=== PATIENT | female | born 1950 | race Caucasian/White ===

== ENCOUNTER 2018-10-19 22:01 | Emergency (ER) | payer MEDICARE, OTHER ==
[~2018-10-19] VITALS: Ht 162.6 cm; Wt 104.3 kg
--- OUTSIDE RECORDS SUMMARY | 2018-10-19 22:05 | XMS REPORT | Clinical Summary ---
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 Pregabalin Other (See 09/25/2017 Comments) Medications End Date Status Medication Sig Dispensed Refills Start Date Active HYDROcodone-acetaminophen Take 1 tablet 0 (NORCO 10-325) 10-325 mg by mouth per tablet every 8 (eight) hours as needed for Pain. Active furosemide (LASIX) 80 MG Take 80 mg by 0 tablet mouth daily. Active aspirin 81 MG EC tablet Take 81 mg by 0 mouth daily. Active amLODIPine (NORVASC) 10 Take 10 mg by 0 MG tablet mouth daily. Active losartan (COZAAR) 100 MG Take 100 mg 0 tablet by mouth daily. 12/13/2017 Discontinued omeprazole (PRILOSEC) 20 Take 20 mg by 0 MG capsule mouth daily. 10/29/2017 atorvastatin (LIPITOR) 10 Take 1 tablet 30 tablet 0 09/29/201 MG tablet (10 mg total) 7 by mouth nightly for 30 days. 12/13/2017 Discontinued carvedilol (COREG) 6.25 Take 1 tablet 60 tablet 0 09/29/201 MG tablet (6.25 mg 7 total) by mouth 2 (two) times daily. 09/29/2018 folic acid (FOLVITE) 1 MG Take 1 tablet 30 tablet 11 201 tablet (1 mg total) 7 by mouth daily. 12/13/2017 Discontinued sevelamer (RENVELA) 800 Take 1 tablet 90 tablet 0 09/29/201 mg tablet (800 mg 7 total) by mouth 3 (three) times daily with meals. Active Problems Problem Noted Date Uremia 09/25/2017 LEILANI (acute kidney injury) 09/25/2017 CKD (chronic kidney disease) 09/25/2017 Encounters Care Team Description Date Type Specialty Sheng Pugh MD Chronic kidney disease, stage III (moderate) (Primary Dx) 01/25/2018 Orders Only Lab Sheng Pugh MD Chronic renal disease, stage III 01/25/2018 Hospital Radiology Encounter Sheng Pugh MD Chronic renal disease, stage III (Primary Dx) 01/23/2018 Outside Orders Central Scheduling Cinthya Rowe MD LEILANI (acute kidney injury) (HCC) 12/13/2017 Hospital Encounter Cinthya Rowe MD ESRD (end stage renal disease) on dialysis (HCC) (Primary Dx) 12/13/2017 Office Visit Cardiology 12/13/2017 Orders Only General Internal Medicine Sheng Pugh MD ESRD (end stage renal disease) (HCC) (Primary Dx) 11/15/2017 Outside Orders Radiology after 10/18/2017 Social History Date Tobacco Use Types Packs/Day Years Used Former Smoker Smokeless Tobacco: Never Used Tobacco Cessation: Counseling Given: No Comments: stopped 15 years ago Sex Assigned at Date Recorded Not on file Industry Job Start Date Occupation Not on file Not on file Not on file Travel End Travel History Travel Start No recent travel history available. Last Filed Vital Signs Time Taken Vital Sign Reading 01/25/2018 12:10 PM CDT Blood Pressure 175/63 01/25/2018 12:10 PM CDT Pulse 88 01/25/2018 11:17 AM CDT Temperature 36.9 C (98.4 F) 01/25/2018 12:10 PM CDT Respiratory Rate 16 01/25/2018 12:10 PM CDT Oxygen Saturation 99% - Inhaled Oxygen - Concentration 01/25/2018 11:17 AM CDT Weight 108.9 kg (240 lb) 12/13/2017 10:16 AM CDT Height 162.6 cm (5' 4") 01/25/2018 11:17 AM CDT Body Mass Index 41.2 Plan of Treatment Health Maintenance Due Date Last Done Comments INFLUENZA VACCINE 07/01/2018 Procedures Comments Procedure Name Priority Date/Time Associated Diagnosis IR TUNNELED CATHETER Routine 01/25/2018 Chronic renal disease, REMOVAL 12:18 PM CDT stage III PLATELET COUNT STAT 01/25/2018 Chronic kidney disease, 9:28 AM CDT stage III (moderate) PT/APTT STAT 01/25/2018 Chronic kidney disease, 9:28 AM CDT stage III (moderate) ECG 12-LEAD Routine 12/13/2017 11:06 AM CDT PERIPHERAL VASCULAR 11/22/2017 REPORT - SCAN 2:25 PM [employer]STRUCTION OR [employer] VEIN MAPPING ARM/ARMS Routine 11/22/2017 ESRD (end stage renal 11:17 AM [employer] OR [employer] disease) (HCC) after 10/18/2017 Results * IR Tunneled Catheter Removal (01/25/2018 12:18 PM CDT) Narrative Performed At FINAL REPORT [facility] Right chest Tunneled hemodialysis catheter removal History: Resolution of renal failure Modality: None. Sedation: None [employer] Internet Sales Consultant:Fer Hameed MD. Coal Handling Supervisor:None. Approach:Right anterior chest. Estimated blood loss:< 5 cc. Specimen: None. Technique:The procedure including risks and benefits were explained to the patient, who expressed understanding. After informed written consent was obtained, the patient's right anterior chest region was prepped and draped in the usual sterile fashion. The skin was anesthetized with lidocaine. The tunneled central line was then removed in toto with blunt dissection and gentle traction. The skin entry site was then dressed with sterile gauze and Tegaderm. The patient tolerated the procedure well. Impression: Successful, uncomplicated removal of a right chest tunneled hemodialysis catheter. Signed: Fer Hameed MD Report Verified Date/Time:01/25/2018 17:56:17 Reading Location: [facility] P048 Angio Body Reading Room Procedure Note Interface, External Ris In - 01/25/2018 5:58 PM CDT FINAL REPORT Right chest Tunneled hemodialysis catheter removal History: Resolution of renal failure Modality: None. Sedation: None [employer] Internet Sales Consultant: Fer Hameed MD. Coal Handling Supervisor: None. Approach: Right anterior chest. Estimated blood loss: < 5 cc. Specimen: None. Technique: The procedure including risks and benefits were explained to the patient, who expressed understanding. After informed written consent was obtained, the patient's right anterior chest region was prepped and draped in the usual sterile fashion. The skin was anesthetized with lidocaine. The tunneled central line was then removed in toto with blunt dissection and gentle traction. The skin entry site was then dressed with sterile gauze and Tegaderm. The patient tolerated the procedure well. Impression: Successful, uncomplicated removal of a right chest tunneled hemodialysis catheter. Signed: Fer Hameed MD Report Verified Date/Time: 01/25/2018 17:56:17 Reading Location: [facility] P048 Angio Body Reading Room Performing Organization Address City/[facility]/Zipcode Phone Number RIS * PT/aPTT (01/25/2018 9:28 AM CDT) Protime 13.8 11.7 - 14.7 seconds [facility] INR 1.1 <=5.9 [facility] PTT 28.6 22.5 - 36.0 seconds [facility] Specimen Blood Narrative Performed At RECOMMENDED COUMADIN/WARFARIN INR THERAPY RANGES [facility] STANDARD DOSE: 2.0 - 3.0 Includes: PROPHYLAXIS for venous thrombosis, [facility] systemic embolization; TREATMENT for venous thrombosis and/or pulmonary embolus. HIGH RISK: Target INR is 2.5-3.5 for patients with mechanical heart valves. Performing Organization Address [facility] Phone Number [place] [phone] [place] [address] [facility] * Platelet count (01/25/2018 9:28 AM CDT) Platelets 272 150 - 450 K/CU MM [facility] Specimen Blood Performing Organization Address [facility] Phone Number [facility] [address] [place] [address] [facility] * ECG 12 lead (12/13/2017 11:06 AM CDT) Narrative Performed At Ventricular Rate 95 BPM GE MUSE Atrial Rate 95 BPM P-R Interval 158 ms QRS Duration 88 ms Q-T Interval 376 ms QTC Calculation(Bazett) 472 ms P [place] 34 degrees R [place] -50 degrees T [place] 36 degrees Normal sinus rhythm Left anterior fascicular block Poor R wave progression Prolonged QT Abnormal ECG When compared with ECG of 26-SEP-2017 23:32, Poor R wave progression Nonspecific T wave abnormality, worse in QT has lengthened Confirmed by MD WOODS YOCHAI ([id number]) on 12/14/2017 2:25:23 PM Procedure Note Interface, External Ris In - 12/14/2017 2:25 PM CDT Ventricular Rate 95 BPM Atrial Rate 95 BPM P-R Interval 158 ms QRS Duration 88 ms Q-T Interval 376 ms QTC Calculation(Bazett) 472 ms P [place] 34 degrees R [place] -50 degrees T [place] 36 degrees Normal sinus rhythm Left anterior fascicular block Poor R wave progression Prolonged QT Abnormal ECG When compared with ECG of 26-SEP-2017 23:32, Poor R wave progression Nonspecific T wave abnormality, worse in QT has lengthened Confirmed by MD WOODS YOCHAI ([id number]) on 12/14/2017 2:25:23 PM Performing Organization Address City/State/Zipcode Phone Number [employer] * PERIPHERAL VASCULAR REPORT - SCAN (11/22/2017 2:25 PM CONSTRUCTION OR [employer]ER) Narrative Performed At * Vein mapping arm/arms (11/22/2017 11:17 AM CONSTRUCTION OR [employer]ANG [employer]ER) Ejection Fraction [facility] MKCK[facility]ON CPACS Impressions Performed At Right Impression [facility] 1. There is no deep venous obstruction in the jugular, axillary, brachial, [facility] radial or ulnar veins. 2. The subclavian vein and artery are not visualized due to dialysis catheter. 3. There is no superficial venous obstruction in the cephalic or basilic veins. 4. The axillary, brachial, radial and ulnar arteries are patent with normal triphasic Doppler waveforms throughout. Left Impression 1. There is no deep venous obstruction in the jugular, subclavian, axillary, brachial, radial or ulnar veins. 2. There is no superficial venous obstruction in the cephalic or basilic veins. 3. The subclavian, axillary, brachial, radial and ulnar arteries are patent with normal triphasic Doppler waveforms throughout. Conclusions Summary Arterial duplex imaging, venous duplex imaging and compression of both upper extremities was performed. The arteries and veins were adequately visualized except as noted. The arteries were patent with normal triphasic Doppler waveforms bilaterally. The venous systems were patent and compressible with no evidence of thrombus in the visualized veins. Superficial venous measurements are documented below. Signature Velocities are measured in cm/s ; Diameters are measured in cm Cephalic Mapping Right Left + + + + + + + + !Location ! !AP Diam!Trans Diam! !AP Diam!Trans Diam! + + + + + + + + !Cephalic at Prox UA ! ! !0.53! ! !0.19! + + + + + + + + !Cephalic at Mid UA ! ! !0.33! ! !0.17! + + + + + + + + !Cephalic at Dist UA ! ! !0.21! ! !0.11! + + + + + + + + !Cephalic at Prox LA ! ! !0.18! ! !0.13! + + + + + + + + !Cephalic at Mid LA ! ! !0.25! ! !0.13! + + + + + + + + !Cephalic at Dist LA ! ! !0.22! ! !0.11! + + + + + + + + Basilic Mapping Right Left + + + + + + + + !Location ! !AP Diam!Trans Diam! !AP Diam!Trans Diam! + + + + + + + + !Basilic at Prox UA ! ! !0.48! ! !0.57! + + + + + + + + !Basilic at Mid UA ! ! !0.49! ! !0.47! + + + + + + + + !Basilic at Dist UA ! ! !0.45! ! !0.38! + + + + + + + + !Basilic at Prox LA ! ! !0.32! ! !0.17! + + + + + + + + !Basilic at Mid LA ! ! !0.21! ! !0.1 ! + + + + + + + + !Basilic at Dist LA ! ! !0.19! ! !0.12! + + + + + + + + Narrative Performed At [facility] - Upper Extremities Vein Mapping [facility] Demographics MKCKESSDACIA CPA Patient NamePERI MUNSONDate of Study 11/22/2017 YINA Age 67 Visit [id number] GenderFemale Date of 1950 [facility] Physician Registered Midwife Nataly Teran InterpretingJ. Roland Angel RN, Karen العراقي, RPVI Procedure Type of Study: Veins: Upper Extremity Vein Mapping, VEIN MAPPING ARM/ARMS. Indications for Study:ESRD. Patient Status:Routine. Study Location:Vascular Lab. Technical Quality:Adequate visualization. Risk Factors History of Disease + +----+ + !Diagnosis !Date!Comments ! + +----+ + !History/Risk Factors: !!ESRD, HTN, HLD, DM, morbid obesity! + +----+ + Procedure Note Interface, External Ris In - 11/22/2017 1:50 PM CONSTRUCTION OR LEAK GANG LAB[employer]ER [facility] - Upper Extremities Vein Mapping Demographics Patient Name PERI MUNSON Date of Study 11/22/2017 YINA DUNBARN [id number] Age 67 Visit Number [id number] Gender Female Date of 1950 Number Referring Keaton Bingham Room Number Physician Registered Midwife Nataly Teran Interpreting Daniela Angel RN, RVT Physician , RPVI Procedure Type of Study: Veins: Upper Extremity Vein Mapping, VEIN MAPPING ARM/ARMS. Indications for Study:ESRD. Patient Status:Routine. Study Location:Vascular Lab. Technical Quality:Adequate visualization. Risk Factors History of Disease + +----+ + !Diagnosis !Date!Comments ! + +----+ + !History/Risk Factors: ! !ESRD, HTN, HLD, DM, morbid obesity ! + +----+ + Impressions Right Impression 1. There is no deep venous obstruction in the jugular, axillary, brachial, radial or ulnar veins. 2. The subclavian vein and artery are not visualized due to dialysis catheter. 3. There is no superficial venous obstruction in the cephalic or basilic veins. 4. The axillary, brachial, radial and ulnar arteries are patent with normal triphasic Doppler waveforms throughout. Left Impression 1. There is no deep venous obstruction in the jugular, subclavian, axillary, brachial, radial or ulnar veins. 2. There is no superficial venous obstruction in the cephalic or basilic veins. 3. The subclavian, axillary, brachial, radial and ulnar arteries are patent with normal triphasic Doppler waveforms throughout. Conclusions Summary Arterial duplex imaging, venous duplex imaging and compression of both upper extremities was performed. The arteries and veins were adequately visualized except as noted. The arteries were patent with normal triphasic Doppler waveforms bilaterally. The venous systems were patent and compressible with no evidence of thrombus in the visualized veins. Superficial venous measurements are documented below. Signature Velocities are measured in cm/s ; Diameters are measured in cm Cephalic Mapping Right Left + + + + + + + + !Location ! !AP Diam !Trans Diam ! !AP Diam !Trans Diam ! + + + + + + + + !Cephalic at Prox UA ! ! !0.53 ! ! !0.19 ! + + + + + + + + !Cephalic at Mid UA ! ! !0.33 ! ! !0.17 ! + + + + + + + + !Cephalic at Dist UA ! ! !0.21 ! ! !0.11 ! + + + + + + + + !Cephalic at Prox LA ! ! !0.18 ! ! !0.13 ! + + + + + + + + !Cephalic at Mid LA ! ! !0.25 ! ! !0.13 ! + + + + + + + + !Cephalic at Dist LA ! ! !0.22 ! ! !0.11 ! + + + + + + + + Basilic Mapping Right Left + + + + + + + + !Location ! !AP Diam !Trans Diam ! !AP Diam !Trans Diam ! + + + + + + + + !Basilic at Prox UA ! ! !0.48 ! ! !0.57 ! + + + + + + + + !Basilic at Mid UA ! ! !0.49 ! ! !0.47 ! + + + + + + + + !Basilic at Dist UA ! ! !0.45 ! ! !0.38 ! + + + + + + + + !Basilic at Prox LA ! ! !0.32 ! ! !0.17 ! + + + + + + + + !Basilic at Mid LA ! ! !0.21 ! ! !0.1 ! + + + + + + + + !Basilic at Dist LA ! ! !0.19 ! ! !0.12 ! + + + + + + + + Performing Organization Address City/State/[facility] Phone Number [facility] after 10/18/2017 Insurance Payer Benefit Subscriber ID Type Phone Address Plan / Group [employer] xxxxxxxxxxx MEDICARE ADV Advance Directives For more information, please contact: [address] [address] Date Inactivated Comments Code Status Date Activated 09/29/2017 7:24 PM Full Code 09/25/2017 5:29 PM This code status was determined by: Patient
--- OUTSIDE RECORDS SUMMARY | 2018-10-19 22:06 | XMS REPORT ---
Author Author [facility] Address Unknown Phone Unavailable Care Team Providers Care Reaming Machine Tender Name Role Phone PAYTON MARTINEZ Unavailable Unavailable MONICA PETERSON Unavailable Unavailable Problems This patient has no known problems. Allergies, Adverse Reactions, Alerts This patient has no known allergies or adverse reactions. Medications This patient has no known medications. Results Test Description Test Time Test Comments Text Results Atomic Results Result Comments ANG, REMOVAL OF TUNNELED CVC W/O PORT 2018-01-25 17:56:00 Reason for Exam:->chronic renal disease III FINAL REPORT Right chest Tunneled hemodialysis catheter removal History: Resolution of renal failure Modality: None. Sedation: None Operations Associate: Fer Hameed MD. Ecosystem Ecology Professor: None. Approach: Right anterior chest. Estimated blood [...] chest tunneled hemodialysis catheter. Signed: Fer Hameed MDReport Verified Date/Time: 01/25/2018 17:56:17 Reading Location: [place] [address] Angio Body Reading Room /APTT 2018-01-25 10:17:00 PROTIME (BEAKER) (test eyan=555) 13.8 seconds 11.7-14.7 INR (BEAKER) (test eusz=625) 1.1 <=5.9 PARTIAL THROMBOPLASTIN TIME (BEAKER) (test vhlo=947) 28.6 seconds 22.5-36.0 RECOMMENDED COUMADIN/WARFARIN INR THERAPY RANGESSTANDARD DOSE: 2.0 - 3.0 Inclu nadine: PROPHYLAXIS for venous thrombosis, systemic embolization; TREATMENT for katherine ous thrombosis and/or pulmonary embolus.HIGH RISK: Target INR is 2.5-3.5 for pat ients with mechanical heart valves.PLATELET [id number] 09:57:00* Test Item Value Reference Range Comments PLATELET COUNT (TOMI) (test zpjw=532) 272 K/CU MM 150-450 ANG, NON-TUNNELED DIALYSIS CATH, [id number] 08:15:00Reason for exam:-> severe kidney failure requiring HD initiation todayFINAL REPORT Nontunneled dialysis catheter insertion. History: Kidney failure. Modality: Fluoroscopy and sonography. Sedation: None. Operations Associate: Michele Moss MD. Ecosystem Ecology Professor: MD Apollo (Fellow). Approach: Right internal jugular vein Estimated blood loss: < 5 cc. Specimen: None. Fluoroscopy Time: 0.4 min.Reference Air Kerma (Ka, r): 12.4 mGy. Technique: Informed written consent was obtained. Discussion of risks, benefits, and alternatives were made with the patient. The patient expressed understanding and agreed to proceed. A universal timeout was performed prior to starting the procedure. All elements maximal sterile barrier technique was utilized for this procedure, including utilization of sterile scrub solution for skin prep, a large sterile sheet to cover the areas of the patient that were not prepped, and hand hygiene, mask, head covering, and sterile gown for performing radiologist and scrub technologist. The skin was anesthetized with 2% lidocaine. Ultrasound evaluation showed a patent and compressible right internal jugular vein, which was punctured under direct real-time ultrasound guidance with a micropuncture needle. An ultrasound image was saved to PACS. A microwire and sheath were placed. A 0.035 inch wire was placed through the sheath into the right atrium. The tract was dilated. The 15 cm dual lumen nontunneled dialysis catheter was p laced over the wire with its distal tip terminating in the superior right atrium . The ports were flushed and aspirated easily following placement. Ports were l ocked with heparin (1000 units per cc) The catheter was sutured to the skin to secure its placement. Vital signs were monitored throughout the procedure by a nurse, and remained stable. The patient tolerated the procedure well and left t he department in the same condition. Results: Spot radiograph of the chest demonstrates the new triple-lumen catheter to lie in the expected position with its tip overlying the right atrium. Impression: Successful, uncomplicated placement of a right nontunneled dialysis catheter using sonographic and fluoroscopic guidance. The catheter is ready for immediate use. Signed: Michele Mosseport Verified Date/Time: 11/2017 08:15:35 Reading Location: [facility] P048 Angio Body Reading Room Elect ronically signed by: MICHELE MOSS MD on 10/02/2017 08:15 AM BASIC METABOLIC [id number] 11:20:00* Test Item Value Reference Range Comments SODIUM (BEAKER) (test dseb=013) 139 meq/L 136-145 POTASSIUM (BEAKER) (test ucdh=757) 3.9 meq/L 3.5-5.1 CHLORIDE (BEAKER) (test fllk=805) 101 meq/L 98-107 CO2 (BEAKER) (test winy=596) 27 meq/L 22-29 BLOOD UREA NITROGEN (BEAKER) (test loxy=344) 48 mg/dL 7-21 CREATININE (BEAKER) (test ruvu=685) 3.57 mg/dL 0.57-1.25 GLUCOSE RANDOM (BEAKER) (test chse=253) 100 mg/dL 70-105 CALCIUM (BEAKER) (test dfky=353) 8.2 mg/dL 8.4-10.2 EGFR (BEAKER) (test qdph=7122) 13 mL/min/1.73 sq m ESTIMATED GFR IS NOT ACCURATE CREATININE CLEARANCE IN PREDICTING GLOMERULAR FILTRATION RATE. ESTIMATED GFR IS NOT APPLICABLE FOR DIALYSIS PATIENTS. CBC (HEMOGRAM ONLY)2017-09-29 09:33:00* Test Item Value Reference Range Comments WHITE BLOOD CELL COUNT (BEAKER) (test llsl=030) 8.7 K/ L 3.5-10.5 RED BLOOD CELL COUNT (BEAKER) (test beqw=712) 2.86 M/ L 3.93-5.22 HEMOGLOBIN (BEAKER) (test uvog=810) 8.5 GM/DL 11.2-15.7 HEMATOCRIT (BEAKER) (test ikml=553) 27.4 % 34.1-44.9 MEAN CORPUSCULAR VOLUME (BEAKER) (test ugys=090) 95.8 fL 79.4-94.8 MEAN CORPUSCULAR HEMOGLOBIN (BEAKER) (test ratx=119) 29.7 pg 25.6-32.2 MEAN CORPUSCULAR HEMOGLOBIN CONC (BEAKER) (test lkxv=294) 31.0 GM/DL 32.2-35.5 RED CELL DISTRIBUTION WIDTH (BEAKER) (test lnpg=645) 13.1 % 11.7-14.4 PLATELET COUNT (BEAKER) (test qhdt=611) 132 K/CU MM 150-450 MEAN PLATELET VOLUME (BEAKER) (test lveh=901) 10.5 fL 9.4-12.3 NUCLEATED RED BLOOD CELLS (BEAKER) (test xfae=366) 0 /100 WBC 0-0 POCT-GLUCOSE [id number] 07:33:00* Test Item Value Reference Range Comments POC-GLUCOSE METER (BEAKER) (test sdom=8615) 127 mg/dL 70-110 [address]ED AT [address] [address] POCT-GLUCOSE [id number] 21:15:00* Test Item Value Reference Range Comments POC-GLUCOSE METER (BEAKER) (test tady=8908) 156 mg/dL 70-110 TESTED AT [address] [address] POCT-GLUCOSE [id number] 17:44:00* Test Item Value Reference Range Comments POC-GLUCOSE METER (BEAKER) (test yssd=3072) 135 mg/dL 70-110 TESTED AT [address] [address] ANG, TUNNELED CATHETER [id number] 17:33:00Reason for exam:->ESRDFINAL REPORT Procedure: Conversion of a Kristian catheter to tunneled dialysis catheter, 09/28/2017 History need long-term dialysis Anesth esia: 2% lidocaine Modality: Fluoroscopy, fluoroscopy time: 0.5 minutes, total d ose: Five mGy, reference air kerma method Approach: Right chest and neck TECHNIQ UE: This procedure was performed after obtaining written informed consent withou t untoward effect. The existing right internal jugular vein Kristian catheter was prepped and removed over guidewire. A 15.5 Filipino double lumen hemodialysis cat heter was introduced along the upper portion of the right chest and into the acc ess site where the previously placed Kristian catheter had been located. There wa s no significant blood loss. CONCLUSION: Conversion of a Kristian to tunneled sunny lysis catheter. Signed: Flory Cooper MDReport Verified Date/Time: 09/28/2017 1 7:33:47 Reading Location: [facility] B1 P048 Angio Body Reading Room Electronicall y signed by: FLORY COOPER M.D. on 09/28/2017 05:33 PM PROTEIN ELECTROPHORESIS, [id number] 16:22:00* Test Item Value Reference Range Comments ALBUMIN FRACTION (BEAKER) (test rshs=234) 3.1 g/dL 3.5-5.5 ALPHA 1 FRACTION (BEAKER) (test upnt=813) 0.2 g/dL 0.2-0.4 ALPHA 2 FRACTION (BEAKER) (test zgyv=962) 0.8 g/dL 0.5-0.9 BETA FRACTION (BEAKER) (test gldn=110) 0.8 g/dL 0.6-1.1 GAMMA GLOBULIN FRACTION (BEAKER) (test fmvl=682) 0.8 g/dL 0.7-1.7 INTERPRETATION-119 (BEAKER) (test obcn=3552) All fractions present in expected distribution. No monoclonal bands detected. GNRS-IMSTRHFJQYN-227 (BEAKER) (test jeao=2128) Sarah Coker MD (electronic signature) PROTEIN TOTAL SERUM, SPEP (BEAKER) (test pmgu=3755) 5.7 gm/dL 6.0-8.3 HEPARIN [id number] 14:18:00* Test Item Value Reference Range Comments HEPARIN ANTIBODY (BEAKER) (test qkwg=720) Negative Negative HEPARIN ANTIBODY OD (BEAKER) (test tpet=5341) 0.068 <0.400 4T TOTAL SCORE (BEAKER) (test ynja=5118) 3 Probability of HIT based on scoring system: 6-8=High probability; 4-5=intermedi ate probability; 0-3=low probabilityPOCT-GLUCOSE [id number] 08:12:00* Test Item Value Reference Range Comments POC-GLUCOSE METER (BEAKER) (test dvat=5429) 139 mg/dL 70-110 TESTED AT [facility] [address] [facility] [address] [id number] 05:53:00* Test Item Value Reference Range Comments PHOSPHORUS (BEAKER) (test rwtx=754) 4.1 mg/dL 2.3-4.7 [id number] 05:53:00* Test Item Value Reference Range Comments MAGNESIUM (BEAKER) (test fyur=985) 1.9 mg/dL 1.6-2.6 BASIC METABOLIC [id number] 05:53:00* Test Item Value Reference Range Comments SODIUM (BEAKER) (test drik=779) 140 meq/L 136-145 POTASSIUM (BEAKER) (test unar=281) 3.9 meq/L 3.5-5.1 CHLORIDE (BEAKER) (test wiqq=112) 105 meq/L 98-107 CO2 (BEAKER) (test assi=942) 25 meq/L 22-29 BLOOD UREA NITROGEN (BEAKER) (test aweb=316) 52 mg/dL 7-21 CREATININE (BEAKER) (test vsnq=185) 3.33 mg/dL 0.57-1.25 GLUCOSE RANDOM (BEAKER) (test stuq=919) 114 mg/dL 70-105 CALCIUM (BEAKER) (test lgfm=029) 8.2 mg/dL 8.4-10.2 EGFR (BEAKER) (test bqpx=8683) 14 mL/min/1.73 sq m ESTIMATED GFR IS NOT ACCURATE CREATININE CLEARANCE IN PREDICTING GLOMERULAR FILTRATION RATE. ESTIMATED GFR IS NOT APPLICABLE FOR DIALYSIS PATIENTS. CALCIUM, [id number] 05:47:00* Test Item Value Reference Range Comments CALCIUM IONIZED (BEAKER) (test tldl=029) 0.86 mmol/L 1.12-1.27 PH, BLOOD (BEAKER) (test dxvw=6214) 7.53 CBC W/PLT COUNT & AUTO [id number] 05:20:00* Test Item Value Reference Range Comments WHITE BLOOD CELL COUNT (BEAKER) (test hscl=976) 7.7 K/ L 3.5-10.5 RED BLOOD CELL COUNT (BEAKER) (test vvwy=546) 2.71 M/ L 3.93-5.22 HEMOGLOBIN (BEAKER) (test agxm=352) 8.1 GM/DL 11.2-15.7 HEMATOCRIT (BEAKER) (test vgyx=833) 26.2 % 34.1-44.9 MEAN CORPUSCULAR VOLUME (BEAKER) (test kdxv=912) 96.7 fL 79.4-94.8 MEAN CORPUSCULAR HEMOGLOBIN (BEAKER) (test pgbc=910) 29.9 pg 25.6-32.2 MEAN CORPUSCULAR HEMOGLOBIN CONC (BEAKER) (test ujec=134) 30.9 GM/DL 32.2-35.5 RED CELL DISTRIBUTION WIDTH (BEAKER) (test tlwy=591) 13.3 % 11.7-14.4 PLATELET COUNT (BEAKER) (test nnbm=343) 128 K/CU MM 150-450 MEAN PLATELET VOLUME (BEAKER) (test eyvl=284) 10.6 fL 9.4-12.3 NUCLEATED RED BLOOD CELLS (BEAKER) (test tkbb=014) 0 /100 WBC 0-0 NEUTROPHILS RELATIVE PERCENT (BEAKER) (test uefw=490) 72 % LYMPHOCYTES RELATIVE PERCENT (BEAKER) (test icqj=346) 11 % MONOCYTES RELATIVE PERCENT (BEAKER) (test fpar=266) 9 % EOSINOPHILS RELATIVE PERCENT (BEAKER) (test kawx=057) 6 % BASOPHILS RELATIVE PERCENT (BEAKER) (test zrfz=351) 1 % NEUTROPHILS ABSOLUTE COUNT (BEAKER) (test juoy=313) 5.50 K/ L 1.56-6.13 LYMPHOCYTES ABSOLUTE COUNT (BEAKER) (test mnqp=505) 0.86 K/ L 1.18-3.74 MONOCYTES ABSOLUTE COUNT (BEAKER) (test ryib=290) 0.72 K/ L 0.24-0.36 EOSINOPHILS ABSOLUTE COUNT (BEAKER) (test hvff=051) 0.48 K/ L 0.04-0.36 BASOPHILS ABSOLUTE COUNT (BEAKER) (test ioad=259) 0.05 K/ L 0.01-0.08 IMMATURE GRANULOCYTES-RELATIVE PERCENT (BEAKER) (test hwqn=8224) 1 % 0-1 POCT-GLUCOSE [id number] 21:28:00* Test Item Value Reference Range Comments POC-GLUCOSE METER (BEAKER) (test smuy=7743) 162 mg/dL 70-110 [address]ED AT [address] [address] POCT-GLUCOSE [id number] 18:45:00* Test Item Value Reference Range Comments POC-GLUCOSE METER (BEAKER) (test ghxb=8424) 149 mg/dL 70-110 TESTED AT [address] [address] POCT-GLUCOSE [id number] 17:26:00* Test Item Value Reference Range Comments POC-GLUCOSE METER (BEAKER) (test tfml=5249) 131 mg/dL 70-110 TESTED AT [address] [address] POCT-GLUCOSE [id number] 13:43:00* Test Item Value Reference Range Comments POC-GLUCOSE METER (BEAKER) (test yubu=1425) 130 mg/dL 70-110 TESTED AT [address] [address] URINE [id number] 11:03:00* Test Item Value Reference Range Comments CULTURE (BEAKER) (test whwf=4669) See comment 10-19,000 col/mL skin magdalena<10,000 col/mL GRAM NEGATIVE RODCBC W/PLT COUNT & AUTO [id number] 09:14:00* Test Item Value Reference Range Comments WHITE BLOOD CELL COUNT (BEAKER) (test fsuq=398) 7.5 K/ L 3.5-10.5 RED BLOOD CELL COUNT (BEAKER) (test kubv=878) 2.93 M/ L 3.93-5.22 HEMOGLOBIN (BEAKER) (test dnbz=301) 8.7 GM/DL 11.2-15.7 HEMATOCRIT (BEAKER) (test igac=811) 27.4 % 34.1-44.9 MEAN CORPUSCULAR VOLUME (BEAKER) (test sfcz=726) 93.5 fL 79.4-94.8 MEAN CORPUSCULAR HEMOGLOBIN (BEAKER) (test nxyi=158) 29.7 pg 25.6-32.2 MEAN CORPUSCULAR HEMOGLOBIN CONC (BEAKER) (test apjm=243) 31.8 GM/DL 32.2-35.5 RED CELL DISTRIBUTION WIDTH (BEAKER) (test wnjs=956) 13.6 % 11.7-14.4 PLATELET COUNT (BEAKER) (test xizi=297) 136 K/CU MM 150-450 MEAN PLATELET VOLUME (BEAKER) (test obmz=314) 11.1 fL 9.4-12.3 NUCLEATED RED BLOOD CELLS (BEAKER) (test codv=896) 0 /100 WBC 0-0 NEUTROPHILS RELATIVE PERCENT (BEAKER) (test bueg=130) 73 % LYMPHOCYTES RELATIVE PERCENT (BEAKER) (test suuj=798) 11 % MONOCYTES RELATIVE PERCENT (BEAKER) (test vgjp=512) 10 % EOSINOPHILS RELATIVE PERCENT (BEAKER) (test zazf=519) 5 % BASOPHILS RELATIVE PERCENT (BEAKER) (test urjq=977) 0 % NEUTROPHILS ABSOLUTE COUNT (BEAKER) (test mjen=997) 5.47 K/ L 1.56-6.13 LYMPHOCYTES ABSOLUTE COUNT (BEAKER) (test mbxj=305) 0.86 K/ L 1.18-3.74 MONOCYTES ABSOLUTE COUNT (BEAKER) (test gasl=123) 0.74 K/ L 0.24-0.36 EOSINOPHILS ABSOLUTE COUNT (BEAKER) (test elfh=186) 0.39 K/ L 0.04-0.36 BASOPHILS ABSOLUTE COUNT (BEAKER) (test dlpy=704) 0.03 K/ L 0.01-0.08 IMMATURE GRANULOCYTES-RELATIVE PERCENT (BEAKER) (test mdaw=2636) 0 % 0-1 CALCIUM, [id number] 07:40:00* Test Item Value Reference Range Comments CALCIUM IONIZED (BEAKER) (test pvnk=449) 0.94 mmol/L 1.12-1.27 PH, BLOOD (BEAKER) (test cenr=3376) 7.45 BASIC METABOLIC [id number] 07:26:00* Test Item Value Reference Range Comments SODIUM (BEAKER) (test wxqd=801) 140 meq/L 136-145 POTASSIUM (BEAKER) (test eagv=064) 4.5 meq/L 3.5-5.1 CHLORIDE (BEAKER) (test ogck=559) 106 meq/L 98-107 CO2 (BEAKER) (test nlbt=903) 22 meq/L 22-29 BLOOD UREA NITROGEN (BEAKER) (test fsap=878) 95 mg/dL 7-21 CREATININE (BEAKER) (test hqul=169) 4.90 mg/dL 0.57-1.25 GLUCOSE RANDOM (BEAKER) (test iesy=905) 115 mg/dL 70-105 CALCIUM (BEAKER) (test vemg=043) 8.2 mg/dL 8.4-10.2 EGFR (BEAKER) (test yygv=7146) 9 mL/min/1.73 sq m ESTIMATED GFR IS NOT ACCURATE CREATININE CLEARANCE IN PREDICTING GLOMERULAR FILTRATION RATE. ESTIMATED GFR IS NOT APPLICABLE FOR DIALYSIS PATIENTS. [id number] 07:25:00* Test Item Value Reference Range Comments PHOSPHORUS (BEAKER) (test zjmp=164) 6.0 mg/dL 2.3-4.7 [id number] 07:25:00* Test Item Value Reference Range Comments MAGNESIUM (BEAKER) (test hops=001) 2.3 mg/dL 1.6-2.6 POCT-GLUCOSE [id number] 22:05:00* Test Item Value Reference Range Comments POC-GLUCOSE METER (BEAKER) (test avqw=4186) 147 mg/dL 70-110 TESTED AT [facility] [address] [facility] [address] POCT-GLUCOSE [id number] 22:01:00* Test Item Value Reference Range Comments POC-GLUCOSE METER (BEAKER) (test bjlv=1361) 117 mg/dL 70-110 TESTED AT [facility] [address] [facility] [address] HEPATITIS B SURFACE [id number] 20:41:00* Test Item Value Reference Range Comments HEPATITIS B SURFACE ANTIGEN (2) (BEAKER) (test dufe=4167) Nonreactive Nonreactive HEPATITIS B [id number] 15:43:00* Test Item Value Reference Range Comments HEPATITIS B CORE TOTAL ANTIBODY (BEAKER) (test cyyp=384) Reactive Nonreactive HEPATITIS B SURFACE ANTIBODY (BEAKER) (test kzhf=508) 93.1 mIU/mL <8.0 HEPATITIS B SURFACE ANTIGEN (2) (BEAKER) (test bwpk=1884) Nonreactive Nonreactive VITAMIN D, [id number] 15:37:00* Test Item Value Reference Range Comments VITAMIN D 25-OH (BEAKER) (test vrqk=8894) 8.9 ng/mL 6.6-49.9 Effective 07/11/2017: Reference Range ChangeNew: 6.6-49.9 ng/mL Previous: 13.0 -47.8 ng/mLRecommended Vitamin D Target Range: 30.0-40.0 ng/mLPOCT-GLUCOSE METER 2017-09-26 12:17:00* Test Item Value Reference Range Comments POC-GLUCOSE METER (BEAKER) (test lqis=3642) 160 mg/dL 70-110 TESTED AT [facility] [address] [facility] [address] POCT-GLUCOSE [id number] 07:57:00* Test Item Value Reference Range Comments POC-GLUCOSE METER (BEAKER) (test jyjx=6858) 146 mg/dL 70-110 TESTED AT [place] [id number] [facility] [address] [id number] 07:18:00* Test Item Value Reference Range Comments PHOSPHORUS (BEAKER) (test hglq=612) 9.1 mg/dL 2.3-4.7 BASIC METABOLIC [id number] 07:08:00* Test Item Value Reference Range Comments SODIUM (BEAKER) (test fxbg=394) 136 meq/L 136-145 POTASSIUM (BEAKER) (test fcsr=160) 4.9 meq/L 3.5-5.1 CHLORIDE (BEAKER) (test apwj=068) 104 meq/L 98-107 CO2 (BEAKER) (test xpwm=015) 18 meq/L 22-29 BLOOD UREA NITROGEN (BEAKER) (test yozc=904) 145 mg/dL 7-21 CREATININE (BEAKER) (test estr=643) 7.11 mg/dL 0.57-1.25 GLUCOSE RANDOM (BEAKER) (test cmzt=136) 130 mg/dL 70-105 CALCIUM (BEAKER) (test pmfd=518) 7.1 mg/dL 8.4-10.2 EGFR (BEAKER) (test qbkj=5566) 6 mL/min/1.73 sq m ESTIMATED GFR IS NOT ACCURATE CREATININE CLEARANCE IN PREDICTING GLOMERULAR FILTRATION RATE. ESTIMATED GFR IS NOT APPLICABLE FOR DIALYSIS PATIENTS. CALCIUM, [id number] 06:59:00* Test Item Value Reference Range Comments CALCIUM IONIZED (BEAKER) (test ispq=883) 0.80 mmol/L 1.12-1.27 PH, BLOOD (BEAKER) (test psrd=2407) 7.36 [id number] 06:56:00* Test Item Value Reference Range Comments MAGNESIUM (BEAKER) (test yrvw=041) 2.3 mg/dL 1.6-2.6 CBC W/PLT COUNT & AUTO [id number] 06:29:00* Test Item Value Reference Range Comments WHITE BLOOD CELL COUNT (BEAKER) (test ksbj=518) 8.7 K/ L 3.5-10.5 RED BLOOD CELL COUNT (BEAKER) (test jpny=865) 2.67 M/ L 3.93-5.22 HEMOGLOBIN (BEAKER) (test aqyp=462) 7.9 GM/DL 11.2-15.7 HEMATOCRIT (BEAKER) (test hcrz=867) 25.3 % 34.1-44.9 MEAN CORPUSCULAR VOLUME (BEAKER) (test ebpp=289) 94.8 fL 79.4-94.8 MEAN CORPUSCULAR HEMOGLOBIN (BEAKER) (test cgnq=012) 29.6 pg 25.6-32.2 MEAN CORPUSCULAR HEMOGLOBIN CONC (BEAKER) (test djkd=486) 31.2 GM/DL 32.2-35.5 RED CELL DISTRIBUTION WIDTH (BEAKER) (test btik=509) 13.7 % 11.7-14.4 PLATELET COUNT (BEAKER) (test ssuv=752) 146 K/CU MM 150-450 MEAN PLATELET VOLUME (BEAKER) (test eexu=827) 10.6 fL 9.4-12.3 NUCLEATED RED BLOOD CELLS (BEAKER) (test helm=281) 0 /100 WBC 0-0 NEUTROPHILS RELATIVE PERCENT (BEAKER) (test gdxk=894) 74 % LYMPHOCYTES RELATIVE PERCENT (BEAKER) (test viim=357) 11 % MONOCYTES RELATIVE PERCENT (BEAKER) (test qjhx=580) 8 % EOSINOPHILS RELATIVE PERCENT (BEAKER) (test ltci=628) 6 % BASOPHILS RELATIVE PERCENT (BEAKER) (test lktb=954) 0 % NEUTROPHILS ABSOLUTE COUNT (BEAKER) (test gnds=195) 6.42 K/ L 1.56-6.13 LYMPHOCYTES ABSOLUTE COUNT (BEAKER) (test gigl=445) 0.98 K/ L 1.18-3.74 MONOCYTES ABSOLUTE COUNT (BEAKER) (test vfmm=354) 0.72 K/ L 0.24-0.36 EOSINOPHILS ABSOLUTE COUNT (BEAKER) (test txsf=667) 0.48 K/ L 0.04-0.36 BASOPHILS ABSOLUTE COUNT (BEAKER) (test qbrv=628) 0.02 K/ L 0.01-0.08 IMMATURE GRANULOCYTES-RELATIVE PERCENT (BEAKER) (test pcfl=0325) 1 % 0-1 U/S, RENAL, [id number] 01:19:00Reason for exam:->renal failureFINAL REPORT U/S, RENAL, COMPLETE CLINICAL INDICATION: "renal failure" COMPARISON: None TECHNIQUE: The kidneys and urinary bladder were evaluated using real time victoria scale and color Doppler sonography. FINDINGS:Ri ght kidney: Thin renal cortex. No hydronephrosis. Left kidney: Thin stephanie al cortex. No hydronephrosis. Renal Vasculature: Doppler interrogation reveals p reserved vascular flow in the main renal arteries and veins bilaterally. The vis ualized portions of the abdominal aorta and IVC are unremarkable. Urinary bladde r: Unremarkable. IMPRESSION: No hydronephrosis. Signed: Niesha Bonnere port Verified Date/Time: 09/26/2017 01:19:45 Reading Location: [facility] C013X [facility] Consult Reading Room Electronically signed by: NIESHA BONNER MD on 01:19 AM [id number] 21:15:00* Test Item Value Reference Range Comments PHOSPHORUS (BEAKER) (test cxwn=953) 9.4 mg/dL 2.3-4.7 BASIC METABOLIC [id number] 21:12:00* Test Item Value Reference Range Comments SODIUM (BEAKER) (test zhmy=373) 137 meq/L 136-145 POTASSIUM (BEAKER) (test uiop=870) 4.9 meq/L 3.5-5.1 CHLORIDE (BEAKER) (test tzez=828) 104 meq/L 98-107 CO2 (BEAKER) (test cqxq=773) 17 meq/L 22-29 BLOOD UREA NITROGEN (BEAKER) (test lxii=549) 146 mg/dL 7-21 CREATININE (BEAKER) (test klhr=542) 7.10 mg/dL 0.57-1.25 GLUCOSE RANDOM (BEAKER) (test eaxu=953) 143 mg/dL 70-105 CALCIUM (BEAKER) (test wxop=168) 7.0 mg/dL 8.4-10.2 EGFR (BEAKER) (test vkzi=0952) 6 mL/min/1.73 sq m ESTIMATED GFR IS NOT ACCURATE CREATININE CLEARANCE IN PREDICTING GLOMERULAR FILTRATION RATE. ESTIMATED GFR IS NOT APPLICABLE FOR DIALYSIS PATIENTS. POCT-GLUCOSE [id number] 20:52:00* Test Item Value Reference Range Comments POC-GLUCOSE METER (BEAKER) (test xszm=8391) 119 mg/dL 70-110 TESTED AT [facility] [address] [facility] [address] RAD, CHEST, 1 VIEW, NON [id number] 20:51:00Reason for exam:->sobFINAL REPORT HISTORY : sob. Comparison: None Comment: Single portable view of the chest was obtained. The cardiac silhouette size is enlarged. There is atherosclerotic calcification of the thoracic aorta. No pneumothorax, pleural effusion or focal infiltrate is seen. There is some nonspecific interstitial prominence. Signed: Amira Acosta MDReport Verified Date/Time: 09/25/2017 20:51:01 Reading Location: [address] [facility] signed by: AMIRA ACOSTA M.D. on 09/25/2017 08:51 PM CREATININE, RANDOM [id number] 20:04:00* Test Item Value Reference Range Comments CREATININE URINE (BEAKER) (test iuzq=874) 55.6 mg/dL Reference Range: No NormalsPROTEIN, RANDOM [id number] 20:04:00* Test Item Value Reference Range Comments PROTEIN, URINE (BEAKER) (test mswg=3121) < mg/dL 0-14 RAPID DRUG SCREEN, [id number] 20:04:00* Test Item Value Reference Range Comments BARBITURATE URINE (BEAKER) (test adtv=567) Negative Negative BENZODIAZEPINE SCREEN URINE (BEAKER) (test lhlr=600) Negative Negative COCAINE (METAB.) SCREEN (BEAKER) (test ujgk=7446) Negative Negative METHADONE SCREEN (BEAKER) (test qzka=7326) Negative Negative OPIATE SCREEN URINE (BEAKER) (test rhgu=226) Negative Negative CANNABINOID SCREEN URINE (BEAKER) (test agpe=368) Negative Negative AMPH/METHAMPH SCREEN (BEAKER) (test jypg=5886) Negative Negative PHENCYCLIDINE SCREEN URINE (BEAKER) (test xibu=329) Negative Negative OXYCODONE SCREEN URINE (BEAKER) (test kmbu=9242) Negative Negative DRUG CUTOFF CONC.Cocaine 300 ng/mL Cannabinoid 50 ng/mL Benzodiazepine 200 ng/mLBarbiturate 200 ng/mLPh encyclidine 25 ng/mLOpiate 300 ng/mLMethadone 300 ng/mLAmphetamine/ 1000 ng/mL MethamphetamineOxycodone 300 ng/mLThis assay provides an unconfirmed qualitative test result for the cli nical management of patients in emergency situations. Chain of custody not maint ained. Some fils-vzo-jndzlqm medications, as well as adulterants, may cause inac curate results. Clinical correlation should be applied. A more comprehensive annmarie g screen or confirmation of a detected drug may be performed upon request. HEMOGLOBIN [id number] 19:46:00* Test Item Value Reference Range Comments HEMOGLOBIN A1C (BEAKER) (test ednf=185) 6.7 % 4.3-6.1 URINALYSIS W/ [id number] 19:43:00* Test Item Value Reference Range Comments COLOR (BEAKER) (test ndgn=383) Light Yellow CLARITY (BEAKER) (test piwb=249) Clear SPECIFIC GRAVITY UA (BEAKER) (test apry=734) 1.006 1.001-1.035 PH UA (BEAKER) (test hrbs=098) 5.0 5.0-8.0 PROTEIN UA (BEAKER) (test iysi=976) Negative Negative GLUCOSE UA (BEAKER) (test czyb=526) Negative Negative KETONES UA (BEAKER) (test gmww=061) Negative Negative BILIRUBIN UA (BEAKER) (test iclu=754) Negative Negative BLOOD UA (BEAKER) (test vgcd=862) Negative Negative NITRITE UA (BEAKER) (test cmol=396) Negative Negative LEUKOCYTE ESTERASE UA (BEAKER) (test geec=288) Large Negative UROBILINOGEN UA (BEAKER) (test iicx=515) 0.2 mg/dL 0.2-1.0 RBC UA (BEAKER) (test vkid=994) < /HPF WBC UA (BEAKER) (test ugvb=749) 2 /HPF BACTERIA (BEAKER) (test pxsu=231) Occasional MUCUS (BEAKER) (test icte=9604) Rare SQUAMOUS EPITHELIAL (BEAKER) (test qlwt=548) 2 /HPF HYALINE CASTS (BEAKER) (test ztfe=945) 2 /LPF SOURCE(BEAKER) (test rktm=4373) Urine, Clean Catch [id number] 19:36:00* Test Item Value Reference Range Comments FERRITIN (BEAKER) (test wdjt=818) 142 ng/mL 5-275 TSH/FREE T4 IF [id number] 19:36:00* Test Item Value Reference Range Comments THYROID STIMULATING HORMONE (BEAKER) (test ldna=625) 1.62 uIU/mL 0.35-4.94 VITAMIN B12 AND [id number] 19:36:00* Test Item Value Reference Range Comments VITAMIN B12 (BEAKER) (test xgwd=074) 426 pg/mL 213-816 FOLATE (BEAKER) (test jywp=185) 5.8 ng/mL >=7.0 CALCIUM, [id number] 19:34:00* Test Item Value Reference Range Comments CALCIUM IONIZED (BEAKER) (test aequ=507) 0.73 mmol/L 1.12-1.27 PH, BLOOD (BEAKER) (test evbp=5157) 7.37 [id number] 19:17:00* Test Item Value Reference Range Comments PHOSPHORUS (BEAKER) (test dpcn=172) 9.8 mg/dL 2.3-4.7 [id number] 19:13:00* Test Item Value Reference Range Comments HAPTOGLOBIN (BEAKER) (test zrzg=867) 233 mg/dL 14-258 BASIC METABOLIC [id number] 19:12:00* Test Item Value Reference Range Comments SODIUM (BEAKER) (test ugtq=078) 138 meq/L 136-145 POTASSIUM (BEAKER) (test wyvg=125) 5.5 meq/L 3.5-5.1 CHLORIDE (BEAKER) (test nebl=756) 106 meq/L 98-107 CO2 (BEAKER) (test vffm=162) 17 meq/L 22-29 BLOOD UREA NITROGEN (BEAKER) (test wlii=524) 148 mg/dL 7-21 CREATININE (BEAKER) (test soyj=810) 6.99 mg/dL 0.57-1.25 GLUCOSE RANDOM (BEAKER) (test komb=583) 111 mg/dL 70-105 CALCIUM (BEAKER) (test fqla=829) 7.0 mg/dL 8.4-10.2 EGFR (BEAKER) (test kvcb=1273) 6 mL/min/1.73 sq m ESTIMATED GFR IS NOT ACCURATE CREATININE CLEARANCE IN PREDICTING GLOMERULAR FILTRATION RATE. ESTIMATED GFR IS NOT APPLICABLE FOR DIALYSIS PATIENTS. URIC [id number] 19:11:00* Test Item Value Reference Range Comments URIC ACID (BEAKER) (test gjns=827) 16.3 mg/dL 2.6-7.2 [id number] 19:11:00* Test Item Value Reference Range Comments MAGNESIUM (BEAKER) (test fwuo=795) 2.3 mg/dL 1.6-2.6 LIPID [id number] 19:11:00* Test Item Value Reference Range Comments TRIGLYCERIDES (BEAKER) (test ttzg=134) 218 mg/dL CHOLESTEROL (BEAKER) (test ouft=312) 157 mg/dL HDL CHOLESTEROL (BEAKER) (test xkcz=961) 26 mg/dL LDL CHOLESTEROL CALCULATED (BEAKER) (test jxng=886) 87 mg/dL Triglyceride Reference Range: Low Risk <150 Borderline 150-199 High Risk 200-499 Very High Risk >=500Cholesterol Reference Range: Low Risk <200 Borderline 200-239 High Risk >240HDL Cholesterol Reference Range: Low Risk >=60 High Risk <40LDL Cholesterol Reference Range: Optimal <100 Near Optimal 100-129 Borderline 130-159 High 160-189 Very High >=190 HEPATIC FUNCTION [id number] 19:11:00* Test Item Value Reference Range Comments TOTAL PROTEIN (BEAKER) (test fbsa=215) 6.0 gm/dL 6.0-8.3 ALBUMIN (BEAKER) (test zdqy=2170) 3.3 g/dL 3.5-5.0 BILIRUBIN TOTAL (BEAKER) (test eqnc=033) 0.4 mg/dL 0.2-1.2 BILIRUBIN DIRECT (BEAKER) (test uwyf=686) 0.2 mg/dL 0.1-0.5 ALKALINE PHOSPHATASE (BEAKER) (test jtsw=664) 48 U/L 40-150 AST (SGOT) (BEAKER) (test ybgg=454) 9 U/L 5-34 ALT (SGPT) (BEAKER) (test zvyl=546) 8 U/L 6-55 LACTATE DEHYDROGENASE (LDH)2017-09-25 19:11:00* Test Item Value Reference Range Comments LACTATE DEHYDROGENASE (BEAKER) (test azlk=900) 222 U/L 125-220 PTH, [id number] 19:07:00* Test Item Value Reference Range Comments PARATHYROID HORMONE INTACT (BEAKER) (test dpto=798) 364.8 pg/mL 8.5-72.5 IRON, TIBC, % SAT. (WITHOUT FERRITIN)2017-09-25 19:00:00* Test Item Value Reference Range Comments IRON (BEAKER) (test qkak=648) 55 ug/dL 40-160 TOTAL IRON BINDING CAPACITY (BEAKER) (test xrzf=790) 248 ug/dL 250-450 IRON % SATURATION (2) (BEAKER) (test kcmc=8211) 22 % 20-55 LACTIC ACID, VENOUS, WHOLE [id number] 18:56:00* Test Item Value Reference Range Comments LACTATE BLOOD VENOUS (2) (BEAKER) (test uhrh=7600) 0.8 mmol/L 0.5-2.2 Effective 02/02/2016: Units/Reference Range ChangeNew: 0.5-2.2 mmol/L Previous: 5 -20 mg/dLPT/[id number] 18:48:00* Test Item Value Reference Range Comments PROTIME (BEAKER) (test tmzl=594) 14.8 seconds 11.7-14.7 INR (BEAKER) (test lbmm=256) 1.2 <=5.9 PARTIAL THROMBOPLASTIN TIME (BEAKER) (test jjgw=468) 28.3 seconds 22.5-36.0 RECOMMENDED COUMADIN/WARFARIN INR THERAPY RANGESSTANDARD DOSE: 2.0 - 3.0 Inclu nadine: PROPHYLAXIS for venous thrombosis, systemic embolization; TREATMENT for katherine ous thrombosis and/or pulmonary embolus.HIGH RISK: Target INR is 2.5-3.5 for pat ients with mechanical heart valves.RETICULOCYTE [id number] 18:42:00* Test Item Value Reference Range Comments RETICULOCYTE COUNT PCT (BEAKER) (test qmtc=363) 1.2 % 0.5-1.7 CBC W/PLT COUNT & AUTO [id number] 18:42:00* Test Item Value Reference Range Comments WHITE BLOOD CELL COUNT (BEAKER) (test ygtd=921) 8.6 K/ L 3.5-10.5 RED BLOOD CELL COUNT (BEAKER) (test qavr=859) 2.84 M/ L 3.93-5.22 HEMOGLOBIN (BEAKER) (test ntdt=799) 8.3 GM/DL 11.2-15.7 HEMATOCRIT (BEAKER) (test akxg=951) 26.7 % 34.1-44.9 MEAN CORPUSCULAR VOLUME (BEAKER) (test zxzr=402) 94.0 fL 79.4-94.8 MEAN CORPUSCULAR HEMOGLOBIN (BEAKER) (test lepu=923) 29.2 pg 25.6-32.2 MEAN CORPUSCULAR HEMOGLOBIN CONC (BEAKER) (test qpnq=784) 31.1 GM/DL 32.2-35.5 RED CELL DISTRIBUTION WIDTH (BEAKER) (test czor=829) 13.6 % 11.7-14.4 PLATELET COUNT (BEAKER) (test sfdr=710) 153 K/CU MM 150-450 MEAN PLATELET VOLUME (BEAKER) (test sfzz=795) 10.4 fL 9.4-12.3 NUCLEATED RED BLOOD CELLS (BEAKER) (test tbmp=681) 0 /100 WBC 0-0 NEUTROPHILS RELATIVE PERCENT (BEAKER) (test shuw=648) 76 % LYMPHOCYTES RELATIVE PERCENT (BEAKER) (test jhpn=676) 11 % MONOCYTES RELATIVE PERCENT (BEAKER) (test bfze=790) 7 % EOSINOPHILS RELATIVE PERCENT (BEAKER) (test wpye=018) 5 % BASOPHILS RELATIVE PERCENT (BEAKER) (test chlf=679) 0 % NEUTROPHILS ABSOLUTE COUNT (BEAKER) (test yzfq=261) 6.55 K/ L 1.56-6.13 LYMPHOCYTES ABSOLUTE COUNT (BEAKER) (test pluj=175) 0.91 K/ L 1.18-3.74 MONOCYTES ABSOLUTE COUNT (BEAKER) (test jpce=480) 0.62 K/ L 0.24-0.36 EOSINOPHILS ABSOLUTE COUNT (BEAKER) (test zqwk=731) 0.41 K/ L 0.04-0.36 BASOPHILS ABSOLUTE COUNT (BEAKER) (test pepw=810) 0.03 K/ L 0.01-0.08 IMMATURE GRANULOCYTES-RELATIVE PERCENT (BEAKER) (test ypcu=0485) 1 % 0-1
[2018-10-20] LABS: BASOPHILS # (AUTO) 0.1 (0.0-0.1); BASOPHILS % 0.7 % (0.0-1.0); EOSINOPHILS # (AUTO) 0.6 (0.0-0.4); EOSINOPHILS % 4.1 % (0.0-6.0); HEMATOCRIT 41.3 % (34.2-44.1); LYMPHOCYTES # (AUTO) 1.4 (1.0-3.2); LYMPHOCYTES % 10.3 % (18.0-39.1); MEAN CORPUSCULAR HEMOGLOBIN 28.8 pg (28-32); MEAN CORPUSCULAR HGB CONC 33.9 g/dL (31-35); MONOCYTES # (AUTO) 0.9 (0.2-0.8); MONOCYTES % 6.5 % (4.4-11.3); NEUTROPHILS # (AUTO) 10.9 (2.1-6.9); PLATELET COUNT 361 x10e3/uL (140-360); RED BLOOD COUNT 4.86 x10e6/uL (3.6-5.1); RED CELL DISTRIBUTION WIDTH 11.9 % (11.7-14.4)
[2018-10-20 00:06] LABS: INR 0.86; PROTHROMBIN TIME 12.5 seconds (11.9-14.5)
[2018-10-20 00:07] LABS: PARTIAL THROMBOPLASTIN TIME 31.1 seconds (23.8-35.5)
[2018-10-20 00:13] LABS: ALBUMIN 3.3 g/dL (3.5-5.0); ALBUMIN/GLOBULIN RATIO 0.8 (0.8-2.0); ANION GAP 16.8 mmol/L (8-16); CALCIUM 9.2 mg/dL (8.4-10.2); CREATININE, SERUM 1.87 mg/dL (0.57-1.11); POTASSIUM 3.8 mmol/L (3.5-5.1)
[2018-10-20] MEDS ORDERED: INSULIN REGULAR, HUMAN 100 UNIT/1 ML 3ML VIAL SQ ONE (00:30)
[2018-10-20] MEDS ORDERED: SODIUM CHLORIDE 0.9% 1000ML 1,000 ML IV ONE (00:30)
[2018-10-20 02:17] VITALS: BP 170/88
== END 2018-10-20 02:32 | disposition home or self-care (01) ==
LOC: ER 22:01
DX: M79.662 Pain in left lower leg (principal); L03.116 Cellulitis of left lower limb; I10 Essential (primary) hypertension; E11.9 Type 2 diabetes mellitus without complications; Z85.828 Personal history of other malignant neoplasm of skin
CPT/HCPCS: 36415; 80053; 85025; 85610; 85730; 93971; 99284; J1817; J7030